=== PATIENT | female | born 1965 | race African-American/Black ===

== ENCOUNTER 2017-04-10 08:33 | Day surgery (SDC) | payer BC ==
[~2017-04-10] VITALS: Ht 175.3 cm; Wt 78.0 kg
[~2017-04-10 08:33] MED LIST: ADVIL200 M1 PO; ASPIR 8181 M1 PO; GLIPIZIDE5 MG PO; GLUCOTROL5 MG PO; LIALDA1.2 GM PO; LIPITOR40 MG PO; LISINOPRIL20 MG PO; METFORMIN HCL1000 MG PO; MULTIVITAMIN1 EAC2 PO; SFROWASA4 GM/60 ML PR; TURMERIC500 MG PO; ZINC50 M1 PO
[2017-04-10 09:08] LABS: POINT-OF-CARE METER ID UU14174212
[2017-04-10 09:19] VITALS: BP 130/76
[2017-04-10 14:44] LABS: POINT-OF-CARE METER ID UU13113675
[2017-04-10] MEDS ORDERED: TYLENOL WITH C1 EACH PO (14:44)
[2017-04-10 16:31] VITALS: BP 124/75
[2017-04-10 17:13] VITALS: BP 130/68
== END 2017-04-10 17:13 | disposition home or self-care (01) ==
LOC: SDC 08:33
PROVIDERS: Surgery
DX: D05.12 Intraductal carcinoma in situ of left breast (principal); E11.9 Type 2 diabetes mellitus without complications; E78.5 Hyperlipidemia, unspecified; I10 Essential (primary) hypertension; J45.909 Unspecified asthma, uncomplicated; Z79.84 Long term (current) use of oral hypoglycemic drugs; Z79.899 Other long term (current) drug therapy; Z79.82 Long term (current) use of aspirin
CPT/HCPCS: 82948; 88307; 88341 TC; 88342 TC; 88360; J0690; J1170; J2250; J3010; J7050

== ENCOUNTER 2017-05-04 05:40 | Day surgery (SDC) | payer BC ==
[~2017-05-04] VITALS: Ht 175.3 cm; Wt 79.2 kg
[~2017-05-04 05:40] MED LIST changes: +TYLENOL WITH C1 EACH PO
[2017-05-04 05:58] VITALS: BP 150/82
[2017-05-04 06:21] LABS: POINT-OF-CARE METER ID UU13113694
[2017-05-04 13:16] LABS: POINT-OF-CARE METER ID UU13113675
[2017-05-04 13:41] VITALS: BP 133/79
[2017-05-04 14:40] VITALS: BP 119/68
[2017-05-04] MEDS ORDERED: PERCOCET 5/31 TABLET PO (14:42)
[2017-05-04 15:07] VITALS: BP 130/78
[2017-05-04 19:38] VITALS: BP 123/59
[2017-05-05 00:16] VITALS: BP 118/60
[2017-05-05 03:55] VITALS: BP 130/59
[2017-05-05 07:32] VITALS: BP 110/69
[2017-05-05 11:21] VITALS: BP 138/82
== END 2017-05-05 12:43 | disposition home or self-care (01) ==
LOC: SDC 05:40 → 2SOUTH 13:47 → 2EAST 13:47 → 2SOUTH 13:47 → 2EAST 14:53
PROVIDERS: Surgery
PROC: 3E0W3KZ Introduction of Other Diagnostic Substance into Lymphatics, Percutaneous Approach (ICD-10-PCS; principal; 2017-05-04)
PROC: 07B60ZX Excision of Left Axillary Lymphatic, Open Approach, Diagnostic (ICD-10-PCS; principal; 2017-05-04)
PROC: 0HTU0ZZ Resection of Left Breast, Open Approach (ICD-10-PCS; principal; 2017-05-04)
DX: C50.912 Malignant neoplasm of unspecified site of left female breast (principal); I10 Essential (primary) hypertension; E78.2 Mixed hyperlipidemia; E11.9 Type 2 diabetes mellitus without complications; J45.909 Unspecified asthma, uncomplicated; Z79.82 Long term (current) use of aspirin; Z79.84 Long term (current) use of oral hypoglycemic drugs
CPT/HCPCS: 78195; 78999; 82948; 84702; 88305; 88309; A9541; G0378; J0131; J0690; J1100; J1170; J1885; J2250; J2405; J3010; J7050; J7120; S0020

== ENCOUNTER 2017-05-30 21:18 | Emergency (ER) | payer BC ==
[~2017-05-30] VITALS: Ht 175.3 cm; Wt 76.3 kg
[~2017-05-30 21:18] MED LIST changes: +PERCOCET 5/31 TABLET PO
[2017-05-30 22:05] LABS: MCH 26.7 PG (29.0-34.0); MCHC 32.5 G/DL (30.0-36.0); MCV 82.2 FL (83-99); MEAN PLAT.VOLUME 9.9 uM^3 (9.5-12.4); PLATELET COUNT 350 K/uL (156-360); RBC DIS.WIDTH-SD 41.9 % (39-53); RED BLOOD COUNT 4.38 M/uL (3.80-5.20); WHITE BLOOD COUNT 6.5 K/uL (4.1-10.2)
[2017-05-30 22:14] LABS: CHLORIDE 107 mEq/L (99-109); POTASSIUM 4.1 mEq/L (3.7-5.4); SODIUM 139 mEq/L (136-147)
[2017-05-30 22:15] LABS: GLUCOSE 101 mg/dL (70-99)
[2017-05-30 22:17] LABS: ANION GAP 9 MEQ/L (2-14)
[2017-05-30 22:19] LABS: GFR ESTIMATE (CALCULATED) > 59 mL/min/
[2017-05-30 22:20] LABS: UREA NITROGEN (BUN) 14 mg/dL (9-23)
[2017-05-30 22:25] LABS: TROP-I INTERPRETATION NEGATIVE; TROPONIN-I < 0.01 ng/mL (0.0-0.30)
[2017-05-31 00:34] VITALS: BP 164/111
== END 2017-05-31 00:37 | disposition home or self-care (01) ==
LOC: EME 21:18
DX: R51 Headache (principal); I10 Essential (primary) hypertension; H92.02 Otalgia, left ear; E11.9 Type 2 diabetes mellitus without complications; Z79.84 Long term (current) use of oral hypoglycemic drugs; Z79.82 Long term (current) use of aspirin; Z90.12 Acquired absence of left breast and nipple
CPT/HCPCS: 70450; 71020; 80048; 84484; 85027; 93005; 99281; 99284